=== PATIENT | male | born 1990 | race Caucasian/White ===

== ENCOUNTER 2016-11-30 20:24 | Emergency (ER) | payer OTHER ==
[2016-11-30 20:49] VITALS: BP 131/76
--- NOTE | 2016-11-30 21:07 | EDM.PDOC ---
ED HPI Trauma - General Chief Complaint: Lower Extremity Injury/Pain Stated Complaint: PT HURT RT ANKLE Time Seen by Provider: 11/30/16 20:41 Source: Reports: Patient, Family History Limitations: Reports: No limitations - History of Present Illness Occurred When: just prior to arrival Occurred Where: home Method of Injury: direct blow Severity: moderate Pain/Injury Location: Reports: lower extremity, right Consciousness: Reports: no loss of consciousness, remembers incident, remembers coming to hosp Associated Symptoms: Reports: no other symptoms Allergies/ADRs: Allergies No Known Allergies Allergy (Verified 11/30/16 20:42) Home Medications: Ambulatory Orders . [No Known Home Meds] 11/30/16 [Confirmed 11/30/16] Past Medical History - Past Health History Medical/Surgical History: Denies Medical/Surgical History - Infectious Disease History Infectious Disease History: Reports: Chicken pox Social & Family History - Family History Family Medical History: Noncontributory - Tobacco Use Smoking Status *Q: Never Smoker Second Hand Smoke Exposure: No - Caffeine Use Caffeine Use: Reports: Coffee Caffeine Use Comment: 5cups/day - Recreational Drug Use Recreational Drug Use: No Review of Systems - Review of Systems Review Of Systems: ROS reveals no pertinent complaints other than HPI. Trauma Exam - Physical Exam Exam: See Below General Appearance: Reports: alert, WD/WN, no apparent distress Head: Reports: atraumatic, normocephalic Eyes: bilateral eye: PERRL Ears: Reports: normal external exam, hearing grossly normal Nose: Reports: normal inspection Throat/Mouth: Reports: Normal inspection, Normal lips, Normal teeth, Normal voice Neck: Reports: non-tender, full range of motion Respiratory Exam: Reports: no respiratory distress, lungs clear, normal breath sounds, no accessory muscle use, chest non-tender Cardiovascular: Reports: normal peripheral pulses Extremities: Reports: other (Centimeter laceration to the anterior esqueda on the right lower). Denies: no evidence of injury ED TRAUMA EXTREMITY PROCEDURES - Laceration/Wound Repair Right Mid-Anterior Leg Lac/wound length in cm: 3 Appearance: subcutaneous Distal NVT: neuro & vascular intact, no tendon injury Anesthetic type: local Local anesthesia - Lidocaine (Xylocaine): 1% plain Local anesthetic volume: 5cc Skin prep: saline Exploration/Debridement/Repair: wound explored, in a bloodless field, explored to base Closed with: sutures Suture size: 3-0 # of sutures: 6 Suture type: nylon, interrupted, simple Suture size: 4-0 # of sutures: 2 Repaired with: chromic Drain placement: No Sterile dressing applied: nurse Tetanus status addressed: Yes Complications: No Course - Vital Signs Last Recorded V/S: Last Vital Signs Temp 36.0 C 11/30/16 20:38 Pulse 70 11/30/16 20:38 Resp 18 11/30/16 20:38 BP 131/76 11/30/16 20:38 Pulse Ox 98 11/30/16 20:38 - Orders/Labs/Meds Orders: Active Orders 24 hr Category Date Time Status Ankle Min 3V Rt [CR] Stat Exams 11/30/16 20:40 Ordered Departure - Departure Time of Disposition: 21:05 Disposition: Home, Self-Care 01 Condition: good Clinical Impression: Laceration of right lower leg Qualifiers: Encounter type: initial encounter Qualified Code(s): S81.811A - Laceration without foreign body, right lower leg, initial encounter Forms: ED Department Discharge Additional Instructions: The following information is given to patients seen in the emergency department who are being discharged to home. This information is to outline your options for follow-up care. We provide all patients seen in our emergency department with a follow-up referral. The need for follow-up, as well as the timing and circumstances, are variable depending upon the specifics of your emergency department visit. If you don't have a primary care physician on staff, we will provide you with a referral. We always advise you to contact your personal physician following an emergency department visit to inform them of the circumstance of the visit and for follow-up with them and/or the need for any referrals to a consulting specialist. The emergency department will also refer you to a specialist when appropriate. This referral assures that you have the opportunity for followup care with a specialist. All of these measure are taken in an effort to provide you with optimal care, which includes your followup. Under all circumstances we always encourage you to contact your private physician who remains a resource for coordinating your care. When calling for followup care, please make the office aware that this follow-up is from your recent emergency room visit. If for any reason you are refused follow-up, please contact the [facility] emergency department at and asked to speak to the emergency department charge nurse. Sutures to be out in 10 days Any signs of infection heat redness swelling pustular exudate return immediately for reevaluation - My Orders Last 24 Hours: My Active Orders 11/30/16 20:40 Ankle Min 3V Rt [CR] Stat - Assessment/Plan Last 24 Hours: My Active Orders 11/30/16 20:40 Ankle Min 3V Rt [CR] Stat
--- NOTE | 2016-12-02 17:51 | CR ---
EXAM DATE: 11/30/16 PATIENT'S AGE: 26 Patient: DUSTIN TRAORE Facility: [place], [place] Site . Site : 1990 Study: XRay Extremity Right [id number]/28/2017 9:02:35 PM Ordering Physician: Doctor Farnsworth Final Report: Indication: Bucked off horse. Technique: Right ankle three views. Comparison: None. Findings: There is a small displaced fracture arising from the lateral talar dome. There is also medial talar tilt and apparent widening of the medial clear space concerning for disruption of the ankle mortise. No additional osseous abnormality evident. Diffuse soft tissue swelling. Impression: Fracture of the lateral talar dome and findings concerning for disruption of the ankle mortise. Dictated by Anurag Delcid MD @ 11/30/2016 9:16:02 PM Dictated by: Anurag Delcid MD @ 11/30/2016 21:16:27 (Electronic Signature) Report Signed by Proxy. NAEEM
== END 2016-11-30 22:00 | disposition home or self-care (01) ==
LOC: MW.ED 20:24
DX: S81.811A Laceration without foreign body, right lower leg, initial encounter (principal); W22.8XXA Striking against or struck by other objects, initial encounter
CPT/HCPCS: 12002; 73610-26-RT; 73610-RT; 99282; 99283

== ENCOUNTER → 2016-12-04 | Outpatient (CLI) | payer OTHER ==
--- NOTE | 2016-12-04 17:07 | CT ---
EXAMINATION: CT right ankle HISTORY: Pain COMPARISON: Radiographs dated 11/30/2016 TECHNIQUE: Axial CT images obtained through the right ankle without contrast. Coronal and sagittal r econstructions obtained. FINDINGS: There is mildly displaced and mildly comminuted fracture along the medial aspect of the ta lar dome. The largest fragment appears flipped within the joint space with the cortical surface faci ng the fracture donor site. The remaining osseous structures and joint spaces appear intact. There i s a small tibiotalar joint effusion. Bone mineralization is otherwise normal. Soft tissue swelling i s noted surrounding the right ankle and dorsal aspect of the foot. IMPRESSION: 1. Small comminuted and mildly displaced medial talar dome fracture. There is a mildly displaced fra gment which appears flipped within the joint space.
== END ==
LOC: MW.DI 13:49
PROVIDERS: ATTEND Physician Assistant
DX: M25.571 Pain in right ankle and joints of right foot (principal); S92.141A Displaced dome fracture of right talus, initial encounter for closed fracture; X58.XXXA Exposure to other specified factors, initial encounter
CPT/HCPCS: 73700-26-RT; 73700-RT